=== PATIENT | female | born 1950 | race Caucasian/White ===

== ENCOUNTER 2016-05-25 18:57 | Emergency (ER) | payer MEDICARE, OTHER ==
[2016-05-25 19:41] LABS: BASOPHILS % (AUTO) 1 % (0-3); EOSINOPHILS % (AUTO) 1 % (0-9); HEMATOCRIT 47 % (35-47); MEAN CORPUSCULAR VOLUME 85 fL (81-99); MONOCYTES % (AUTO) 10.5 % (0-12); NEUTROPHILS % (AUTO) 52.6 % (37-80)
[2016-05-25] MEDS ORDERED: DILTIAZEM 5 MG/ML SOL IV ONE ×2 (19:43→20:11)
[2016-05-25] MEDS ORDERED: SODIUM CHLORIDE 0.9% 500 ML SOL IV SCH (19:45)
[2016-05-25 20:00] LABS: ALBUMIN 3.4 gm/dl (3.4-5.0); ALT 59 IU/L (14-63); CALCIUM 9.7 mg/dl (8.5-10.1); GLOM FILT RATE 39 mL/min (>60); POTASSIUM 4.3 mMol/L (3.5-5.1); SODIUM 136 mMol/L (136-145)
[2016-05-25 20:08] VITALS: TEMP 97.9
[2016-05-25] MEDS ORDERED: SODIUM CHLORIDE 0.9% FLUSH 10 ML SOL IV PRN (20:13)
[2016-05-25 21:40] VITALS: BP 101/60; PULSE 75; RESP 19; O2SAT 97
== END 2016-05-25 21:33 | disposition home or self-care (01) | DRG 204 ==
LOC: ED 18:57
DX: R06.00 Dyspnea, unspecified (principal); I50.9 Heart failure, unspecified; R53.1 Weakness; R47.81 Slurred speech; I25.10 Atherosclerotic heart disease of native coronary artery without angina pectoris; Z86.73 Personal history of transient ischemic attack (TIA), and cerebral infarction without residual deficits; R79.1 Abnormal coagulation profile
CPT/HCPCS: 36415; 70450; 71010; 80053; 83880; 84484; 85025; 85378; 85610; 85730; 93005; 96365; 99284; 99291

== ENCOUNTER 2016-06-02 15:10 | Emergency (ER) | payer MEDICARE, OTHER ==
[2016-06-02 15:25] VITALS: RESP 16; O2SAT 94
[2016-06-02] MEDS ORDERED: APAP/OXYCODONE 325/5 TAB PO ONE (17:02)
[2016-06-02] MEDS ORDERED: APAP/OXYCODONE 325/5 TAB ONE (17:05)
[2016-06-02] MEDS ORDERED: HYDROMORPHONE HCL 2 MG/ML 1 ML SOL IV PRN (17:08)
[2016-06-02] MEDS ORDERED: HYDROMORPHONE HCL 2 MG/ML 1 ML SOL ONE (17:09)
[2016-06-02 18:01] VITALS: BP 111/78; PULSE 89; TEMP 97.8
== END 2016-06-02 17:49 | disposition home or self-care (01) | DRG 312 ==
LOC: ED 15:10
DX: R55 Syncope and collapse (principal); S09.90XA Unspecified injury of head, initial encounter; M25.552 Pain in left hip; M25.562 Pain in left knee; W18.30XA Fall on same level, unspecified, initial encounter
CPT/HCPCS: 70450; 72120; 72170; 73501; 73560; 96374; 99284; J1170

== ENCOUNTER 2016-11-29 21:46 | Emergency (ER) | payer MEDICARE, OTHER ==
[2016-11-29 22:01] VITALS: PULSE 80; TEMP 98.6
[2016-11-29] MEDS ORDERED: SODIUM CHLORIDE 0.9% 1000ML 1,000 ML IV ONE (22:10)
[2016-11-29 22:47] LABS: BASOPHILS % (AUTO) 1 % (0-3); EOSINOPHILS % (AUTO) 2 % (0-9); HEMATOCRIT 43 % (35-47); MEAN CORPUSCULAR HGB CONC 32.4 gm/dl (32.0-36.0); MEAN CORPUSCULAR VOLUME 90 fL (81-99); MONOCYTES % (AUTO) 6.3 % (0-12); NEUTROPHILS % (AUTO) 51.6 % (37-80)
[2016-11-29 22:59] VITALS: O2SAT 94
[2016-11-29 23:07] LABS: ALBUMIN 3.1 gm/dl (3.4-5.0); ALT 37 IU/L (14-63); CALCIUM 8.4 mg/dl (8.5-10.1); GLOM FILT RATE 44 mL/min (>60)
[2016-11-29 23:11] LABS: POTASSIUM 3.5 mMol/L (3.5-5.1); SODIUM 139 mMol/L (136-145)
[2016-11-30 00:15] VITALS: BP 108/70; RESP 20
== END 2016-11-30 00:08 | disposition home or self-care (01) | DRG 605 ==
LOC: ED 21:46
DX: S70.02XA Contusion of left hip, initial encounter (principal); I50.9 Heart failure, unspecified; M48.02 Spinal stenosis, cervical region; M16.12 Unilateral primary osteoarthritis, left hip; N18.9 Chronic kidney disease, unspecified; R79.82 Elevated C-reactive protein (CRP); Z95.0 Presence of cardiac pacemaker; Z79.01 Long term (current) use of anticoagulants; W01.0XXA Fall on same level from slipping, tripping and stumbling without subsequent striking against object, initial encounter
CPT/HCPCS: 36415; 70450; 72125; 73501; 80053; 83880; 84484; 85025; 85610; 93005; 96365; 99284

== ENCOUNTER 2017-02-07 13:51 | Outpatient (CLI) | payer MEDICARE, OTHER ==
[2017-02-07 15:03] LABS: CALCIUM 9.1 mg/dl (8.5-10.1)
== END 2017-02-07 13:52 | disposition home or self-care (01) | DRG 556 ==
LOC: CONVCARE 13:51
PROVIDERS: ATTEND Orthopaedic Surgery
DX: M25.552 Pain in left hip (principal); M88.88 Osteitis deformans of other bones
CPT/HCPCS: 36415; 73501; 82310; 84075; 84100

== ENCOUNTER 2017-03-28 09:11 | Outpatient (CLI) | payer MEDICARE, OTHER | END 2017-03-28 09:12 | disposition home or self-care (01) | DRG 556 | LOC: CONVCARE 09:11 | PROVIDERS: ATTEND Orthopaedic Surgery | DX: M25.552 Pain in left hip (principal) ==

== ENCOUNTER 2017-05-22 18:24 | Inpatient (IN) | payer MEDICARE, BC ==
[2017-05-22 19:45] LABS: BASOPHILS % (AUTO) 1 % (0-3); EOSINOPHILS % (AUTO) 3 % (0-9); HEMATOCRIT 47 % (35-47); MEAN CORPUSCULAR HGB CONC 34.3 gm/dl (32.0-36.0); MEAN CORPUSCULAR VOLUME 89 fL (81-99); MONOCYTES % (AUTO) 7.1 % (0-12); NEUTROPHILS % (AUTO) 42.5 % (37-80)
[2017-05-22 19:53] LABS: CALCIUM 8.6 mg/dl (8.5-10.1); POTASSIUM 3.6 mMol/L (3.5-5.1)
[2017-05-22] MEDS ORDERED: ACETAMINOPHEN 325 MG PO ONE (20:06)
[2017-05-22] MEDS ORDERED: ACETAMINOPHEN 325 MG ONE (20:08)
[2017-05-22 20:09] LABS: APPEARANCE,URINE Slightly Cloudy; BILIRUBIN,URINE 1+ (NEGATIVE); COLOR,URINE Dark yellow; GLUCOSE, URINE (UA) NEGATIVE (NEGATIVE); KETONES,URINE TRACE (NEGATIVE); LEUKOCYTE ESTERASE ,URINE NEGATIVE (NEGATIVE); NITRATE,URINE NEGATIVE (NEGATIVE); OCCULT BLOOD,URINE NEGATIVE (NEG-TRACE); PH,URINE 5.5
[2017-05-22 20:24] LABS: ICTOTEST,URINE NEGATIVE (NEGATIVE)
[2017-05-22] MEDS ORDERED: SODIUM CHLORIDE 0.9% 1000ML 1,000 ML IV ONE (20:59)
[2017-05-22] MEDS ORDERED: SUMATRIPTAN SUCCINATE 25 MG PO PRN (21:09)
[2017-05-22] MEDS ORDERED: ACETAMINOPHEN 500 MG 500 MG TAB PO PRN (21:09)
[2017-05-22] MEDS: CIPROFLOXACIN HCL 500 MG TAB PO SCH (22:13)
[2017-05-23 00:49] VITALS: RESP 18
[2017-05-23] MEDS: CIPROFLOXACIN HCL 500 MG TAB PO SCH (08:57)
[2017-05-23] MEDS ORDERED: DIAZEPAM 5 MG TAB PO SCH (09:00)
[2017-05-23] MEDS ORDERED: FLUOXETINE HYDROCHLORIDE 10 MG CAP PO SCH (09:00)
[2017-05-23] MEDS ORDERED: FUROSEMIDE 40 MG TAB PO SCH (09:00)
[2017-05-23] MEDS ORDERED: METOPROLOL SUCCINATE 50 MG ER TAB PO SCH (09:00)
[2017-05-23] MEDS ORDERED: SPIRONOLACTONE 25 MG TAB PO SCH (09:00)
[2017-05-23] MEDS ORDERED: FAMOTIDINE 20 MG TAB PO SCH (09:00)
[2017-05-23] MEDS ORDERED: FLUTICASONE PROPIONATE SPR NAS SCH (10:00)
[2017-05-23 14:40] VITALS: BP 108/75; PULSE 65; TEMP 96.4; O2SAT 96
[2017-05-23] MEDS ORDERED: MIRTAZAPINE 15 MG TAB PO SCH (21:00)
[2017-05-23] MEDS ORDERED: ATORVASTATIN 10 MG TAB PO SCH (21:00)
== END 2017-05-23 17:10 | disposition home or self-care (01) | DRG 914 ==
LOC: ED 18:24 → UNDOADMIN 20:40 → ACUTE CARE 20:40
PROVIDERS: ADMIT Family Medicine; ATTEND Family Medicine
PROC: F02Z0ZZ Bathing/Showering Assessment (ICD-10-PCS; principal; 2017-05-23)
PROC: F02Z1ZZ Dressing Assessment (ICD-10-PCS; 2017-05-23)
PROC: F02Z3ZZ Grooming/Personal Hygiene Assessment (ICD-10-PCS; 2017-05-23)
PROC: F01ZBZZ Bed Mobility Assessment (ICD-10-PCS; 2017-05-23)
PROC: F01ZCZZ Transfer Assessment (ICD-10-PCS; 2017-05-23)
PROC: F0125ZZ Range of Motion and Joint Integrity Assessment of Neurological System - Lower Back / Lower Extremity (ICD-10-PCS; 2017-05-23)
DX: S09.90XA Unspecified injury of head, initial encounter (principal); I48.91 Unspecified atrial fibrillation; E86.0 Dehydration; N39.0 Urinary tract infection, site not specified; R40.2142 Coma scale, eyes open, spontaneous, at arrival to emergency department; R40.2252 Coma scale, best verbal response, oriented, at arrival to emergency department; R79.1 Abnormal coagulation profile; W01.198A Fall on same level from slipping, tripping and stumbling with subsequent striking against other object, initial encounter; R40.2362 Coma scale, best motor response, obeys commands, at arrival to emergency department; Z95.0 Presence of cardiac pacemaker; Z79.01 Long term (current) use of anticoagulants; W01.10XA Fall on same level from slipping, tripping and stumbling with subsequent striking against unspecified object, initial encounter
CPT/HCPCS: 36415; 51798; 70450; 72125; 80048; 81001; 85025; 85610; 87077; 87088; 87186; 99221; 99284; 99285; A9270; A9270-GY

== ENCOUNTER 2018-01-28 14:47 | Emergency (ER) | payer MEDICARE, BC ==
[2018-01-28 14:58] VITALS: BP 117/80; PULSE 60; RESP 18; TEMP 97.4; O2SAT 97
[2018-01-28 15:36] LABS: BASOPHILS % (AUTO) 2 % (0-3); EOSINOPHILS % (AUTO) 2 % (0-9); HEMATOCRIT 47 % (35-47); HEMOGLOBIN 14.9 gm/dl (12.0-15.5); LYMPHOCYTES % (AUTO) 49.3 % (10-50); MEAN CORPUSCULAR HEMOGLOBIN 29.6 pg (27.0-32.0); MEAN CORPUSCULAR HGB CONC 31.9 gm/dl (32.0-36.0); MEAN CORPUSCULAR VOLUME 93 fL (81-99); MONOCYTES % (AUTO) 7.3 % (0-12); NEUTROPHILS % (AUTO) 39.5 % (37-80)
[2018-01-28 15:40] LABS: INR 1.67 (0.86-1.12)
[2018-01-28 15:48] LABS: CALCIUM 8.4 mg/dl (8.5-10.1); CREATININE 1.02 mg/dl (0.60-1.00); POTASSIUM 3.4 mMol/L (3.5-5.1)
== END 2018-01-28 17:32 | disposition home or self-care (01) | DRG 914 ==
LOC: ED 14:47
DX: S09.90XA Unspecified injury of head, initial encounter (principal); M79.645 Pain in left finger(s); I48.91 Unspecified atrial fibrillation
CPT/HCPCS: 36415; 70450; 72125; 73140; 80048; 85025; 85610; 99283

== ENCOUNTER 2018-02-28 10:48 | Emergency (ER) | payer MEDICARE, BC ==
[2018-02-28] MEDS ORDERED: HYDROMORPHONE 1 MG/ML SYRINGE IV ONE (11:00)
[2018-02-28] MEDS ORDERED: HYDROMORPHONE 1 MG/ML SYRINGE ONE (11:01)
[2018-02-28 11:14] LABS: BASOPHILS % (AUTO) 0 % (0-3); EOSINOPHILS % (AUTO) 1 % (0-9); HEMATOCRIT 52 % (35-47); HEMOGLOBIN 16.7 gm/dl (12.0-15.5); LYMPHOCYTES % (AUTO) 21.9 % (10-50); MEAN CORPUSCULAR HEMOGLOBIN 29.4 pg (27.0-32.0); MEAN CORPUSCULAR HGB CONC 32.1 gm/dl (32.0-36.0); MEAN CORPUSCULAR VOLUME 91 fL (81-99); MONOCYTES % (AUTO) 6.5 % (0-12); NEUTROPHILS % (AUTO) 70.6 % (37-80)
[2018-02-28 11:21] LABS: INR 1.8 (0.86-1.12)
[2018-02-28 11:25] LABS: ALBUMIN 3.4 gm/dl (3.4-5.0); ALKALINE PHOSPHATASE 245 IU/L (46-116); ALT 48 IU/L (14-63); AST 53 IU/L (15-37); BILIRUBIN,TOTAL 0.7 mg/dl (0.2-1.0); BLOOD UREA NITROGEN 21 mg/dl (7-18); CALCIUM 9.6 mg/dl (8.5-10.1); CARBON DIOXIDE 32.1 mEq/L (21-32); CHLORIDE 99 mMol/L (98-107); CREATININE 1.18 mg/dl (0.60-1.00); GLUCOSE 130 mg/dl (74-106); POTASSIUM 3.5 mMol/L (3.5-5.1); SODIUM 139 mMol/L (136-145); TOTAL PROTEIN 8.7 gm/dl (6.4-8.2); TROP I < 0.017 ng/ml (0.000-0.056)
[2018-02-28] MEDS ORDERED: SODIUM CHLORIDE 0.9% 1000ML 1,000 ML IV ONE (11:25)
[2018-02-28] MEDS ORDERED: HYDROMORPHONE 1 MG/ML SYRINGE IV PRN (11:39)
[2018-02-28 12:05] LABS: LACTIC ACID 1.2 mMol/L (0.0-2.0)
[2018-02-28 12:31] LABS: APPEARANCE,URINE Slightly Cloudy; BILIRUBIN,URINE 1+ (NEGATIVE); COLOR,URINE Dark yellow; GLUCOSE, URINE (UA) NEGATIVE (NEGATIVE); KETONES,URINE TRACE (NEGATIVE); LEUKOCYTE ESTERASE ,URINE TRACE (NEGATIVE); NITRATE,URINE POSITIVE (NEGATIVE); OCCULT BLOOD,URINE NEGATIVE (NEG-TRACE); PH,URINE 5.5
[2018-02-28 13:08] LABS: BACTERIA 3+ (< 1+); CRYSTALS NEGATIVE (0-3 AVE/HPF); EPITHELIAL CELLS 0-2 (SQUAMOUS); ICTOTEST,URINE NEGATIVE (NEGATIVE); RBC,URINE 0-2 (0-3AV/HPF); WBC,URINE 15-20 (0-5AV/HPF)
[2018-02-28] MEDS ORDERED: CIPROFLOXACIN HCL 500 MG TAB PO SCH (13:30)
[2018-02-28] MEDS ORDERED: ONDANSETRON HCL 4 MG/2 ML SOL IV ONE (14:40)
[2018-02-28] MEDS ORDERED: ONDANSETRON HCL 4 MG/2 ML SOL ONE (14:42)
[2018-02-28] MEDS ORDERED: CIPROFLOXACIN HCL 500 MG TAB PO ONE (15:06)
[2018-02-28 16:28] VITALS: PULSE 60; TEMP 97.4
[2018-02-28 16:29] VITALS: BP 117/78; RESP 20; O2SAT 97
== END 2018-02-28 15:56 | disposition home or self-care (01) | DRG 914 ==
LOC: ED 10:48
DX: S19.9XXA Unspecified injury of neck, initial encounter (principal); N39.0 Urinary tract infection, site not specified; B96.20 Unspecified Escherichia coli [E. coli] as the cause of diseases classified elsewhere; M25.552 Pain in left hip; M25.561 Pain in right knee; Z79.01 Long term (current) use of anticoagulants
CPT/HCPCS: 36415; 70450; 71045; 72125; 72128; 72131; 73502; 73560; 80053; 81001; 84484; 85025; 85610; 85730; 87077; 87088; 87186; 96365; 96366; 96374; 96375; 99284; 99285; G0390; J2405; L0130; A9270-GY; J1170

== ENCOUNTER 2018-03-02 07:39 | Emergency (ER) | payer MEDICARE, BC ==
[2018-03-02] MEDS ORDERED: SODIUM CHLORIDE 0.9% 500 ML 500 ML IV ONE (07:47)
[2018-03-02] MEDS ORDERED: SODIUM CHLORIDE 0.9% FLUSH 10 ML SOL IV PRN (07:47)
[2018-03-02 07:48] VITALS: TEMP 96
[2018-03-02] MEDS ORDERED: ACETAMINOPHEN 1,000 MG/100 ML VIAL IV ONE (07:48)
[2018-03-02] MEDS ORDERED: TRAMADOL HYDROCHLORIDE 50 MG TAB PO ONE (07:50)
[2018-03-02] MEDS ORDERED: TRAMADOL HYDROCHLORIDE 50 MG TAB ONE (08:02)
[2018-03-02 12:50] VITALS: PULSE 60; O2SAT 97
[2018-03-02 12:51] VITALS: BP 115/63; RESP 17
== END 2018-03-02 11:45 | disposition home or self-care (01) | DRG 552 ==
LOC: ED 07:39
DX: M54.5 Low back pain (principal); S70.02XA Contusion of left hip, initial encounter
CPT/HCPCS: 96365; 99070; 99283; 99284; A9270-GY; J0131

== ENCOUNTER 2018-03-04 12:14 | Emergency (ER) | payer MEDICARE, BC ==
[2018-03-04 12:26] VITALS: RESP 18; TEMP 97.3
[2018-03-04] MEDS ORDERED: HYDROMORPHONE 1 MG/ML SYRINGE IV ONE ×2 (12:31→18:02)
[2018-03-04] MEDS ORDERED: SODIUM CHLORIDE 0.9% FLUSH 10 ML SOL IV PRN (12:31)
[2018-03-04] MEDS ORDERED: HYDROMORPHONE 1 MG/ML SYRINGE ONE ×2 (12:35→18:03)
[2018-03-04 14:09] VITALS: PULSE 60
[2018-03-04] MEDS ORDERED: HYDROMORPHONE HCL 2 MG/ML SOL IV ONE (17:53)
[2018-03-04 19:49] VITALS: BP 153/95; O2SAT 97
== END 2018-03-04 18:55 | disposition home or self-care (01) | DRG 556 ==
LOC: ED 12:14
DX: M25.551 Pain in right hip (principal)
CPT/HCPCS: 73502; 96374; 99282; 99285; J1170

== ENCOUNTER 2018-03-18 14:39 | Emergency (ER) | payer MEDICARE, BC ==
[2018-03-18 14:46] VITALS: TEMP 97.9
[2018-03-18 18:07] VITALS: PULSE 78; O2SAT 97
[2018-03-18 18:08] VITALS: BP 117/81; RESP 18
[2018-03-18] MEDS ORDERED: HYDROMORPHONE 1 MG/ML SYRINGE IV ONE (18:27)
[2018-03-18] MEDS ORDERED: HYDROMORPHONE 1 MG/ML SYRINGE ONE (18:28)
== END 2018-03-18 18:31 | disposition short-term general hospital (02) | DRG 544 ==
LOC: ED 14:39
DX: M48.56XA Collapsed vertebra, not elsewhere classified, lumbar region, initial encounter for fracture (principal); W19.XXXD Unspecified fall, subsequent encounter
CPT/HCPCS: 72128; 72131; 73700; 96374; 99283; 99285; J1170

== ENCOUNTER 2018-04-05 20:36 | Inpatient (IN) | payer MEDICARE, BC ==
[2018-04-05] MEDS ORDERED: ACETAMI/HYDROCO 325/10 TAB PO ONE (20:55)
[2018-04-05] MEDS ORDERED: APAP/HYDROCODONE 1 EACH TABLET ONE ×2 (21:02→21:29)
[2018-04-05 21:08] LABS: BASOPHILS % (AUTO) 1 % (0-3); EOSINOPHILS % (AUTO) 0 % (0-9); HEMATOCRIT 45 % (35-47); HEMOGLOBIN 14.3 gm/dl (12.0-15.5); MEAN CORPUSCULAR HEMOGLOBIN 29.3 pg (27.0-32.0); MEAN CORPUSCULAR HGB CONC 31.9 gm/dl (32.0-36.0); MEAN CORPUSCULAR VOLUME 92 fL (81-99); MONOCYTES % (AUTO) 11.9 % (0-12); NEUTROPHILS % (AUTO) 62.2 % (37-80)
[2018-04-05 21:17] LABS: CALCIUM 8.6 mg/dl (8.5-10.1); CARBON DIOXIDE 28.7 mEq/L (21-32); CREATININE 1.31 mg/dl (0.60-1.00); POTASSIUM 3.5 mMol/L (3.5-5.1)
[2018-04-05] MEDS ORDERED: APAP/HYDROCODONE 1 EACH TABLET PO ONE (21:27)
[2018-04-05] MEDS ORDERED: CEFAZOLIN (PREMIX) 1 GM 1 GM/50 ML SOL IV ONE (22:14)
[2018-04-05] MEDS ORDERED: SODIUM CHLORIDE 0.9% 1000ML 1,000 ML IV ONE (22:28)
[2018-04-05 23:03] LABS: CRP INFLAMMATORY 12.18 mg/dl (0.00-0.33)
[2018-04-05 23:13] LABS: INR 5.83 (0.86-1.12)
[2018-04-05] MEDS ORDERED: CEFAZOLIN SODIUM 1 GM PDS ONE (23:26)
[2018-04-05 23:27] LABS: LACTIC ACID 1.6 mMol/L (0.0-2.0)
[2018-04-06] MEDS ORDERED: ALBUTEROL HFA 60 PUFF/INHALER INH PRN (00:08)
[2018-04-06] MEDS ORDERED: DIAZEPAM 5 MG TAB PO SCH (00:15)
[2018-04-06] MEDS ORDERED: DIAZEPAM 5 MG TAB PO PRN (01:00)
[2018-04-06] MEDS ORDERED: ACETAMINOPHEN 500 MG 500 MG TAB PO PRN ×2 (01:00→01:15)
[2018-04-06] MEDS ORDERED: DIPHENHYDRAMINE 25 MG CAP PO PRN ×2 (01:01→01:15)
[2018-04-06] MEDS ORDERED: FUROSEMIDE 40 MG TAB PO SCH ×2 (09:00→18:00)
[2018-04-06] MEDS: CLOTRIMAZOLE 1% CREAM TOP SCH ×2 (09:22→20:49)
[2018-04-06] MEDS: ASPIRIN EC 81 MG PO SCH (09:22)
[2018-04-06] MEDS: SPIRONOLACTONE 25 MG TAB PO SCH (09:22)
[2018-04-06] MEDS: CETIRIZINE HYDROCHLORIDE 10 MG TAB PO SCH (09:23)
[2018-04-06] MEDS: FAMOTIDINE 20 MG TAB PO SCH ×2 (09:23→20:47)
[2018-04-06] MEDS: FLUOXETINE HYDROCHLORIDE 10 MG CAP PO SCH (09:23)
[2018-04-06] MEDS ORDERED: CYCLOBENZAPRINE 10 MG TAB ONE ×3 (10:03→23:13)
[2018-04-06] MEDS: APAP/HYDROCODONE 1 EACH TABLET PO PRN ×2 (10:06→18:08)
[2018-04-06] MEDS: CYCLOBENZAPRINE HYDROCHLORID 5 MG TAB PO PRN ×3 (10:08→23:15)
[2018-04-06 11:25] LABS: CALCIUM 8.5 mg/dl (8.5-10.1); CARBON DIOXIDE 27.5 mEq/L (21-32); CREATININE 1.04 mg/dl (0.60-1.00); POTASSIUM 3.1 mMol/L (3.5-5.1)
[2018-04-06 11:29] LABS: BASOPHILS % (AUTO) 1 % (0-3); EOSINOPHILS % (AUTO) 1 % (0-9); HEMATOCRIT 42 % (35-47); HEMOGLOBIN 13.5 gm/dl (12.0-15.5); LYMPHOCYTES % (AUTO) 27.4 % (10-50); MEAN CORPUSCULAR HEMOGLOBIN 29.5 pg (27.0-32.0); MEAN CORPUSCULAR HGB CONC 31.9 gm/dl (32.0-36.0); MEAN CORPUSCULAR VOLUME 92 fL (81-99); MONOCYTES % (AUTO) 11.4 % (0-12); NEUTROPHILS % (AUTO) 58.9 % (37-80)
[2018-04-06 11:49] LABS: INR 6.17 (0.86-1.12)
[2018-04-06] MEDS: BUDESONIDE/FORMOTEROL 160/4.5 AER INH SCH ×2 (13:11→20:56)
[2018-04-06] MEDS: POTASSIUM CHLORIDE 10 MEQ TER PO SCH ×2 (14:55→20:46)
[2018-04-06] MEDS ORDERED: CEFAZOLIN SODIUM 1 GM PDS IV ONE (15:08)
[2018-04-06] MEDS: SODIUM CHLORIDE 0.9% FLUSH 10 ML SOL IV SCH (17:13)
[2018-04-06] MEDS ORDERED: MIRTAZAPINE 15 MG TAB PO SCH (21:00)
[2018-04-06] MEDS ORDERED: ATORVASTATIN 10 MG TAB PO SCH (21:00)
[2018-04-06] MEDS ORDERED: METOPROLOL SUCCINATE 50 MG ER TAB PO SCH (21:00)
[2018-04-06] MEDS: CEFAZOLIN SODIUM 1 GM PDS IV SCH (21:17)
[2018-04-07] MEDS: SODIUM CHLORIDE 0.9% FLUSH 10 ML SOL IV SCH ×2 (02:00→10:13)
[2018-04-07] MEDS: CEFAZOLIN SODIUM 1 GM PDS IV SCH (04:23)
[2018-04-07] MEDS ORDERED: CYCLOBENZAPRINE 10 MG TAB ONE (05:44)
[2018-04-07] MEDS: APAP/HYDROCODONE 1 EACH TABLET PO PRN (05:51)
[2018-04-07] MEDS: CYCLOBENZAPRINE HYDROCHLORID 5 MG TAB PO PRN (05:52)
[2018-04-07 07:08] LABS: BASOPHILS % (AUTO) 1 % (0-3); EOSINOPHILS % (AUTO) 3 % (0-9); HEMATOCRIT 40 % (35-47); HEMOGLOBIN 13.2 gm/dl (12.0-15.5); LYMPHOCYTES % (AUTO) 44.6 % (10-50); MEAN CORPUSCULAR HEMOGLOBIN 30.3 pg (27.0-32.0); MEAN CORPUSCULAR HGB CONC 32.8 gm/dl (32.0-36.0); MEAN CORPUSCULAR VOLUME 92 fL (81-99); MONOCYTES % (AUTO) 10.1 % (0-12); NEUTROPHILS % (AUTO) 41.3 % (37-80)
[2018-04-07 07:16] LABS: CALCIUM 8.8 mg/dl (8.5-10.1); CARBON DIOXIDE 28.5 mEq/L (21-32); CREATININE 1.27 mg/dl (0.60-1.00); CRP INFLAMMATORY 10.92 mg/dl (0.00-0.33); POTASSIUM 3.8 mMol/L (3.5-5.1)
[2018-04-07 07:36] LABS: INR 4.35 (0.86-1.12)
[2018-04-07] MEDS: ASPIRIN EC 81 MG PO SCH (08:34)
[2018-04-07] MEDS: SPIRONOLACTONE 25 MG TAB PO SCH (08:34)
[2018-04-07] MEDS: CETIRIZINE HYDROCHLORIDE 10 MG TAB PO SCH (08:41)
[2018-04-07] MEDS: FLUOXETINE HYDROCHLORIDE 10 MG CAP PO SCH (08:41)
[2018-04-07] MEDS: BUDESONIDE/FORMOTEROL 160/4.5 AER INH SCH (08:55)
[2018-04-07] MEDS ORDERED: CEPHALEXIN 250 MG/5 ML BOTTLE PO SCH (09:00)
[2018-04-07] MEDS ORDERED: FUROSEMIDE 20 MG TAB PO SCH (09:00)
[2018-04-07 09:36] VITALS: BP 112/73; PULSE 60; RESP 18; TEMP 97.2; O2SAT 99
[2018-04-07] MEDS: FAMOTIDINE 20 MG TAB PO SCH (10:11)
[2018-04-07] MEDS: CLOTRIMAZOLE 1% CREAM TOP SCH (11:03)
[2018-04-08] MEDS ORDERED: [UNRECOGNIZED DRUG - OTHER] IH SCH (09:00)
== END 2018-04-07 13:50 | disposition home health service (06) | DRG 603 ==
LOC: ED 20:36 → ACUTE CARE 23:36 → UNDOADMIN 23:36 → ACUTE CARE 04-06 00:20
PROVIDERS: ADMIT Family Medicine; ATTEND Family Medicine
PROC: F01L0FZ Muscle Performance Assessment of Musculoskeletal System - Lower Back / Lower Extremity using Assistive, Adaptive, Supportive or Protective Equipment (ICD-10-PCS; principal; 2018-04-07)
PROC: F01L5ZZ Range of Motion and Joint Integrity Assessment of Musculoskeletal System - Lower Back / Lower Extremity (ICD-10-PCS; 2018-04-07)
PROC: F01ZBZZ Bed Mobility Assessment (ICD-10-PCS; 2018-04-07)
DX: L03.115 Cellulitis of right lower limb (principal); Z79.01 Long term (current) use of anticoagulants; E11.9 Type 2 diabetes mellitus without complications; M54.9 Dorsalgia, unspecified; R79.1 Abnormal coagulation profile; S32.009D Unspecified fracture of unspecified lumbar vertebra, subsequent encounter for fracture with routine healing
CPT/HCPCS: 36415; 73630; 80048; 85025; 85610; 87040; 96365; 99222; 99283; 99284; J0690; A9270; A9270-GY

== ENCOUNTER 2018-07-16 23:10 | Emergency (ER) | payer MEDICARE, BC ==
[2018-07-16 23:21] VITALS: TEMP 97.1
[2018-07-16] MEDS ORDERED: PROMETHAZINE HYDROCHLORIDE 25 MG/ML SOL IV ONE (23:36)
[2018-07-16] MEDS ORDERED: PROMETHAZINE HYDROCHLORIDE 25 MG/ML SOL ONE (23:41)
[2018-07-16 23:56] LABS: CARBON DIOXIDE 31.3 mEq/L (21-32); CREATININE 1.06 mg/dl (0.60-1.00); POTASSIUM 3.3 mMol/L (3.5-5.1)
[2018-07-17] MEDS ORDERED: POTASSIUM CHLORIDE 10 MEQ TER PO ONE
[2018-07-17 00:03] LABS: INR 2.5 (0.86-1.12)
[2018-07-17] MEDS ORDERED: POTASSIUM CHLORIDE 10 MEQ TER ONE (00:30)
[2018-07-17 01:44] VITALS: PULSE 60; RESP 16
[2018-07-17 01:45] VITALS: BP 135/85; O2SAT 93
== END 2018-07-17 01:15 | disposition home or self-care (01) | DRG 605 ==
LOC: ED 23:10
DX: S00.93XA Contusion of unspecified part of head, initial encounter (principal); W19.XXXA Unspecified fall, initial encounter; E87.6 Hypokalemia; Z91.81 History of falling; Z79.01 Long term (current) use of anticoagulants
CPT/HCPCS: 36415; 70450; 72125; 80048; 85018; 85610; 96374; 99283; 99285; J2550; L0130; A6232; A9270-GY

== ENCOUNTER 2018-07-25 15:31 | Emergency (ER) | payer BC, MEDICARE ==
[2018-07-25] MEDS ORDERED: HYDROMORPHONE 1 MG/ML SYRINGE ONE (16:18)
[2018-07-25] MEDS ORDERED: HYDROMORPHONE 1 MG/ML SYRINGE IV ONE (16:20)
[2018-07-25 18:07] VITALS: TEMP 97.7
[2018-07-25 19:42] VITALS: PULSE 61; RESP 18
[2018-07-25 20:10] VITALS: BP 144/92; O2SAT 95
== END 2018-07-25 19:49 | disposition short-term general hospital (02) | DRG 561 ==
LOC: ED 15:31
DX: S32.038G Other fracture of third lumbar vertebra, subsequent encounter for fracture with delayed healing (principal); S32.028G Other fracture of second lumbar vertebra, subsequent encounter for fracture with delayed healing; Z79.01 Long term (current) use of anticoagulants; E11.9 Type 2 diabetes mellitus without complications
CPT/HCPCS: 72128; 72131; 96374; 99284; J1170

== ENCOUNTER 2018-09-06 09:25 | Emergency (ER) | payer BC | END 2018-09-06 13:30 | disposition home or self-care (01) | LOC: ED 09:25 ==

== ENCOUNTER 2018-09-19 09:20 | Observation (INO) | payer BC ==
[2018-09-19 09:47] LABS: BASOPHILS % (AUTO) 1 % (0-3); EOSINOPHILS % (AUTO) 2 % (0-9); HEMATOCRIT 49 % (35-47); HEMOGLOBIN 16.1 gm/dl (12.0-15.5); LYMPHOCYTES % (AUTO) 42.4 % (10-50); MEAN CORPUSCULAR HEMOGLOBIN 29.6 pg (27.0-32.0); MEAN CORPUSCULAR HGB CONC 32.6 gm/dl (32.0-36.0); MEAN CORPUSCULAR VOLUME 91 fL (81-99); MONOCYTES % (AUTO) 8.6 % (0-12); NEUTROPHILS % (AUTO) 45.3 % (37-80)
[2018-09-19 09:54] LABS: CALCIUM 9.2 mg/dl (8.5-10.1); CARBON DIOXIDE 29.8 mEq/L (21-32); CREATININE 1.03 mg/dl (0.60-1.00); INR 1.71 (0.86-1.12)
[2018-09-19] MEDS ORDERED: BACITRACIN 500 U/GM OIN TOP ONE ×2 (11:04→11:06)
[2018-09-19 12:51] LABS: APPEARANCE,URINE Slightly Cloudy; BILIRUBIN,URINE 1+ (NEGATIVE); COLOR,URINE Amber; GLUCOSE, URINE (UA) NEGATIVE (NEGATIVE); KETONES,URINE TRACE (NEGATIVE); LEUKOCYTE ESTERASE ,URINE 2+ (NEGATIVE); NITRATE,URINE POSITIVE (NEGATIVE); OCCULT BLOOD,URINE TRACE INTACT (NEG-TRACE); PH,URINE 6.5; UROBILINOGEN,URINE 0.2 (0.2-1.0 EU)
[2018-09-19 12:59] LABS: BACTERIA 3+ (< 1+); CRYSTALS NEGATIVE (0-3 AVE/HPF); ICTOTEST,URINE NEGATIVE (NEGATIVE); RBC,URINE 0-2 (0-3AV/HPF); WBC,URINE 20-25 (0-5AV/HPF)
[2018-09-19] MEDS ORDERED: LEVOFLOXACIN 25 MG/ML 250 MG in SODIUM CHLORIDE 0.9% 50 ML 50 ML IV ONE (13:16)
[2018-09-19] MEDS ORDERED: APAP/HYDROCODONE 1 EACH TABLET PO ONE (13:20)
[2018-09-19] MEDS ORDERED: DIAZEPAM 5 MG TAB PO ONE (13:20)
[2018-09-19] MEDS ORDERED: DIAZEPAM 5 MG TAB ONE (13:40)
[2018-09-19] MEDS ORDERED: LEVOFLOXACIN 25 MG/ML SOL IV ONE (13:41)
[2018-09-19] MEDS ORDERED: APAP/HYDROCODONE 1 EACH TABLET ONE (13:41)
[2018-09-19] MEDS ORDERED: SODIUM CHLORIDE 0.9% FLUSH 10 ML SOL IV PRN (16:53)
[2018-09-19] MEDS ORDERED: PATIENT EDUCATION 1 MISC PRN (19:14)
[2018-09-19] MEDS ORDERED: APAP/HYDROCODONE 1 EACH TABLET PO PRN (21:20)
[2018-09-19] MEDS ORDERED: BETAMETHASONE DIP TP PRN (21:20)
[2018-09-19] MEDS ORDERED: CLOTRIMAZOLE TP PRN (21:20)
[2018-09-19] MEDS ORDERED: [UNRECOGNIZED DRUG - OTHER] TP PRN (21:20)
[2018-09-19] MEDS ORDERED: ALBUTEROL HFA 60 PUFF/INHALER INH PRN (21:20)
[2018-09-19] MEDS ORDERED: DIMETHICONE APPL TOP PRN (21:20)
[2018-09-19] MEDS ORDERED: BUDESONIDE/FORMOTEROL 160/4.5 AER INH PRN (21:20)
[2018-09-19] MEDS ORDERED: Non-Formulary Medication MISC (Nystatin 1 Gm Powder 1 APPL) TOP PRN (21:20)
[2018-09-19] MEDS ORDERED: Non-Formulary Medication MISC (Nystatin 30 Gm Cream 1 APPL) TOP PRN (21:20)
[2018-09-19] MEDS: ACETAMINOPHEN 325 MG PO PRN (22:06)
[2018-09-20] MEDS: ACETAMINOPHEN 325 MG PO PRN (04:58)
[2018-09-20] MEDS ORDERED: FAMOTIDINE 20 MG TAB PO SCH (09:00)
[2018-09-20] MEDS ORDERED: ATORVASTATIN CALCIUM 80 MG TAB PO SCH (09:00)
[2018-09-20] MEDS ORDERED: SPIRONOLACTONE 25 MG TAB PO SCH (09:00)
[2018-09-20] MEDS ORDERED: CETIRIZINE HYDROCHLORIDE 10 MG TAB PO SCH (09:00)
[2018-09-20] MEDS ORDERED: METOPROLOL SUCCINATE 50 MG ER TAB PO SCH (09:00)
[2018-09-20] MEDS ORDERED: FLUOXETINE HYDROCHLORIDE 10 MG CAP PO SCH (09:00)
[2018-09-20] MEDS ORDERED: BETAMETHASONE DP AUG 0.05% TP SCH (09:00)
[2018-09-20] MEDS ORDERED: FUROSEMIDE 40 MG TAB PO SCH (09:00)
[2018-09-20] MEDS ORDERED: ATORVASTATIN 10 MG TAB ONE (09:09)
[2018-09-20 09:20] VITALS: BP 109/75; PULSE 60; TEMP 97.4
[2018-09-20] MEDS ORDERED: CLOTRIMAZOLE TP PRN (09:20)
[2018-09-20] MEDS ORDERED: BETAMETHASONE DIPROPIONATE TP PRN (09:20)
[2018-09-20 09:22] VITALS: RESP 16; O2SAT 97
[2018-09-20] MEDS ORDERED: NYSTATIN 1 GM TOP PRN (09:23)
[2018-09-20] MEDS ORDERED: WARFARIN SODIUM 4 MG TAB PO ONE (09:28)
[2018-09-20] MEDS ORDERED: DIAZEPAM 5 MG TAB PO ONE (09:55)
[2018-09-20] MEDS ORDERED: MIRTAZAPINE 15 MG TAB PO SCH (21:00)
== END 2018-09-20 10:35 | DRG 605 ==
LOC: ED 09:20 → ACUTE CARE 17:40 → UNDOADMOB 17:40 → ACUTE CARE 17:55
PROVIDERS: ADMIT Family Medicine; ATTEND Family Medicine
PROC: F01ZBZZ Bed Mobility Assessment (ICD-10-PCS; principal; 2018-09-20)
PROC: F01ZCFZ Transfer Assessment using Assistive, Adaptive, Supportive or Protective Equipment (ICD-10-PCS; 2018-09-20)
DX: S01.01XA Laceration without foreign body of scalp, initial encounter (principal); N39.0 Urinary tract infection, site not specified; W18.12XA Fall from or off toilet with subsequent striking against object, initial encounter; Z79.01 Long term (current) use of anticoagulants; I48.91 Unspecified atrial fibrillation; S70.311A Abrasion, right thigh, initial encounter; S30.811A Abrasion of abdominal wall, initial encounter; S70.01XA Contusion of right hip, initial encounter; S09.90XA Unspecified injury of head, initial encounter; R26.9 Unspecified abnormalities of gait and mobility; Z91.81 History of falling; S32.009D Unspecified fracture of unspecified lumbar vertebra, subsequent encounter for fracture with routine healing; E11.9 Type 2 diabetes mellitus without complications; F11.90 Opioid use, unspecified, uncomplicated; F15.90 Other stimulant use, unspecified, uncomplicated; F19.90 Other psychoactive substance use, unspecified, uncomplicated
CPT/HCPCS: 12001; 70460; 72126; 73502; 73562; 80048; 81001; 85025; 85610; 87077; 87088; 87186; 96365; 99217; 99284; 99285; G0390; J1956; A6232; A6402; A9270; A9270-GY

== ENCOUNTER 2018-11-30 11:43 | Emergency (ER) | payer BC ==
[2018-11-30 12:00] VITALS: TEMP 97.2
[2018-11-30] MEDS ORDERED: HYDROMORPHONE HCL 2 MG/ML SOL IM ONE (12:25)
[2018-11-30] MEDS ORDERED: HYDROMORPHONE 1 MG/ML SYRINGE ONE (12:29)
[2018-11-30 12:45] LABS: BASOPHILS % (AUTO) 1 % (0-3); EOSINOPHILS % (AUTO) 0 % (0-9); HEMATOCRIT 48 % (35-47); HEMOGLOBIN 14.7 gm/dl (12.0-15.5); MEAN CORPUSCULAR HEMOGLOBIN 29.3 pg (27.0-32.0); MEAN CORPUSCULAR HGB CONC 30.8 gm/dl (32.0-36.0); MEAN CORPUSCULAR VOLUME 95 fL (81-99); MONOCYTES % (AUTO) 10.4 % (0-12); NEUTROPHILS % (AUTO) 61.5 % (37-80)
[2018-11-30 12:57] LABS: CALCIUM 8.2 mg/dl (8.5-10.1); CARBON DIOXIDE 32.6 mEq/L (21-32); CREATININE 1.1 mg/dl (0.60-1.00); URIC ACID 8.7 mg/dl (2.6-7.2)
[2018-11-30] MEDS ORDERED: POTASSIUM CHLORIDE 10 MEQ TER PO ONE ×2 (13:07→15:37)
[2018-11-30] MEDS ORDERED: POTASSIUM CHLORIDE 2 MEQ/ML 10 MEQ, LIDOCAINE HCL 1% MDV 2 ML in SODIUM CHLORIDE 0.9% 1... IV ONE ×2 (13:07→15:37)
[2018-11-30] MEDS ORDERED: POTASSIUM CHLORIDE 10 MEQ TER ONE ×2 (13:33→16:15)
[2018-11-30] MEDS ORDERED: POTASSIUM CHLORIDE 2 MEQ/ML SOL IV ONE (13:33)
[2018-11-30] MEDS ORDERED: LIDOCAINE HCL 1% MPF 30 SOL ONE (13:36)
[2018-11-30 19:18] VITALS: BP 98/61; PULSE 96; RESP 14; O2SAT 96
== END 2018-11-30 18:20 | disposition home or self-care (01) | DRG 554 ==
LOC: ED 11:43
DX: M10.9 Gout, unspecified (principal); E87.6 Hypokalemia; M54.5 Low back pain; Z79.01 Long term (current) use of anticoagulants; E11.9 Type 2 diabetes mellitus without complications
CPT/HCPCS: 36415; 80048; 84132; 84550; 85025; 96365; 96366; 96372; 99282; 99285; J3480; A9270-GY; J1170; J2001